=== PATIENT | female | born 1980 | race Two or more races ===

== ENCOUNTER 2021-03-05 07:18 | Emergency (ER) | payer MEDICAID ==
[~2021-03-05] VITALS: Ht 154.9 cm; Wt 72.6 kg
[2021-03-05 07:31] VITALS: BP 129/87
--- NOTE | 2021-03-05 08:00 | NUR ---
COVID AND RAPID STREP SPECIMEN OBTAINED AND SENT TO THE LAB.
--- NOTE | 2021-03-05 08:07 | NUR ---
URINE SPECIMEN COLLECTED AND SENT TO LAB.
--- NOTE | 2021-03-05 09:37 | NUR ---
Patient discharged to home in stable condition. Written and verbal after care instructions given. Patient verbalizes understanding of instruction.
== END 2021-03-05 09:37 | disposition home or self-care (01) ==
LOC: ER 07:18
DX: J06.9 Acute upper respiratory infection, unspecified (principal); Z20.822 Contact with and (suspected) exposure to COVID-19; Z86.16 Personal history of COVID-19
CPT/HCPCS: 84703; 87070; 87426; 87880; 99283; C9803 ×2; U0003; 86403-TC